=== PATIENT | male | born 1960 | race Caucasian/White ===

== ENCOUNTER → 2016-03-30 | Outpatient (CLI) | payer OTHER ==
[~2016-03-30] MED LIST: ASPI81TA28 PO; CYAN100T PO; HYDR-5688 PO; LANS15CA6 PO; MULT-506 PO; NAPR1TAB9 PO
--- NOTE | 2016-03-30 11:00 | DIAGNOSTIC IMAGING REPORT ---
[facility] ultrasound GALLBLADDER-ABD LIMITED CLINICAL HISTORY: Nausea bloating TECHNIQUE: Ultrasound COMPARISON STUDY: None FINDINGS: Fatty infiltration of liver. 2. Small gallbladder polyps measuring 5 mm. No shadowing gallstones. Common mild that of 5 mm. Right kidney is negative for hydronephrosis. Instill note is made of patient directed nodule of the right anterior abdominal wall. This is suggestive of lipoma measuring 6 x 10 x 2.5 cm. IMPRESSION: 1. Fatty infiltration of liver. 2. Small, or polyps. 3. Normal caliber bile ducts. 4. Anterior abdominal wall lipoma corresponding to the palpable nodule per patient Electronically signed by: Yifan Dempsey M.D. 03/30/2016 10:58 AM
== END | disposition home or self-care (01) ==
LOC: C.ULTR 09:20
PROVIDERS: ATTEND Surgery
DX: R11.0 Nausea (principal); R14.0 Abdominal distension (gaseous); K76.0 Fatty (change of) liver, not elsewhere classified

== ENCOUNTER 2016-05-03 06:12 | Observation (INO) | payer OTHER ==
[2016-04-24 09:25] VITALS: BMI 31.0
[~2016-05-03] VITALS: Ht 180.3 cm; Wt 102.3 kg
[2016-05-03] VITALS (11 sets, daily range): BP systolic 109–158; BP diastolic 60–84; PULSE 68–88; TEMP 36.2–37.4; O2SAT 91–95; Ht 180.3 cm; Wt 102.3 kg
[~2016-05-03 06:12] MED LIST changes: +CLINDAMYCIN IV 900 MG in DEXTROSE 5% ADD-VANTAGE 100ML 100 ML IV SCH; -CYAN100T PO; -HYDR-5688 PO; +LACTATED RINGER'S 1000ML 1,000 ML IV SCH; -NAPR1TAB9 PO
--- NOTE | 2016-05-03 07:04 | History & Physical Bridge Note ---
H&P Re-Evaluation Bridge Note: I have examined the patient, reviewed the History & Physical and in the interval since the performance of the History & Physical I have noted the following changes of clinical significance: No changes noted
[2016-05-03] MEDS ORDERED: LACTATED RINGER'S 1000ML 1,000 ML IV PRN (07:14)
[2016-05-03] MEDS ORDERED: KETOROLAC TROMETHAMINE 30 MG/ML VIAL IV. PRN (07:15)
[2016-05-03] MEDS ORDERED: ONDANSETRON INJ 2 MG/ML 2 ML VIAL IV PRN ×2 (07:15→09:00)
[2016-05-03] MEDS ORDERED: ONDANSETRON INJ 2 MG/ML 2 ML VIAL ONE (07:21)
[2016-05-03] MEDS ORDERED: ROCURONIUM BROMIDE 10 MG/ML 5 ML VIAL ONE (07:21)
[2016-05-03] MEDS ORDERED: DEXAMETHASONE SOD INJ 4 MG/ML VIAL ONE (07:21)
[2016-05-03] MEDS ORDERED: LIDOCAINE HCL 2% 2 ML VIAL (20MG/ML) ONE (07:21)
[2016-05-03] MEDS ORDERED: PROPOFOL IV EMULSION 10 MG/ML 20 ML VIAL IV ONE (07:21)
[2016-05-03] MEDS ORDERED: MIDAZOLAM HCL 1 MG/ML 2ML VIAL ONE (07:22)
[2016-05-03] MEDS ORDERED: FENTANYL CITRATE INJ 50 MCG/1 ML 2 ML VIAL ONE (07:22)
[2016-05-03] MEDS ORDERED: BUPIVACAINE 0.5 % 5 MG/1 ML MPF 30ML VIAL ONE (07:50)
[2016-05-03] MEDS ORDERED: LABETALOL HCL IV 5 MG/ML 20ML ONE (08:30)
[2016-05-03] MEDS ORDERED: NEOSTIGMINE METHYLSULFATE 5 MG/5 ML SYR ONE (08:40)
[2016-05-03] MEDS ORDERED: GLYCOPYRROLATE INJ 0.2 MG/ML VIAL ONE ×2 (08:40→09:05)
--- NOTE | 2016-05-03 08:51 | [facility] Operative Report ---
Operative Report Operative Date May 03, 2016. Pre-Operative Diagnosis Biliary colic Post-Operative Diagnosis chronic cholecystitis, adhesions Procedure(s) Performed lap leslie, lysis of adhesions Surgeon Dr Mccollum Dry Starch Supervisor Surgeon(s) Malick Wylie PA-C Estimated Blood Loss 20ML Findings dense adhesions- omentum to gb, + gs Specimens A: Gallbladder Anesthesia gen Complication(s) None Disposition Recovery Room / PACU I attest to the content of the Intraoperative Record and any orders documented therein. Any exceptions are noted below.
[2016-05-03] MEDS ORDERED: PROMETHAZINE HCL INJ 25 MG in SODIUM CHLORIDE 0.9% 50ML 50 ML IV PRN (09:00)
[2016-05-03] MEDS ORDERED: MoRPHine SULFATE 2 MG/ML CARP IV PRN (09:00)
[2016-05-03] MEDS ORDERED: HYDROCODONE/ACETAMOPHEN 5/325MG TAB PO PRN ×2 (09:00)
[2016-05-03] MEDS ORDERED: MoRPHine SULFATE 4 MG/ML 1 ML CARP\\VIAL IV PRN (09:00)
--- NOTE | 2016-05-03 09:07 | OPERATIVE REPORT ---
DATE OF OPERATION: 05/03/2016 PREOPERATIVE DIAGNOSIS: Biliary colic. POSTOPERATIVE DIAGNOSIS: Same with chronic cholecystitis and adhesions. NAME OF OPERATION: Laparoscopic cholecystectomy with lysis of adhesions. STAFF SURGEON: Dr. Mccollum. CARROT TIER: Malick Wylie PA-C. ANESTHESIA: General. OPERATION AND FINDINGS: PROCEDURE: The patient was brought in the operating room and placed on the operating table in supine position. His abdomen was prepped and draped in usual fashion. Pneumatic stockings and orogastric tube were placed. Incision was made just above the umbilicus using 0.5% plain Marcaine to anesthetize all incisions. Dissection was carried down to the fascia, placing a Veress needle producing pneumoperitoneum. An 11 mm port was placed at this level and then under visualization three 5 mm ports were placed, 1 cephalad and 2 laterally. The omentum was up over the liver. It was brought down. The gallbladder was retracted. There were significant and he has end of the omentum to the gallbladder. These were taken down and the gallbladder aspirated of bile. Dissection carried out at the moy hepatis through some dense scar tissue. This was all consistent with chronic cholecystitis. The cystic duct and cystic artery were identified. These were clipped and transected and the gallbladder dissected away from the liver bed in the usual fashion and placed into an Endobag. Because of the adhesions and retraction, there was a small 5 mm liver laceration x2 which were cauterized and easily maintained with hemostasis. After appropriate irrigation and hemostasis, the gallbladder was placed in the Endobag and removed through the umbilical site. I did have to increase the size of the fascial defect slightly to remove the gallbladder, it did have stones within the gallbladder. At this point, all ports were removed. The fascia at the umbilicus closed using interrupted 0 Vicryl suture. Subcutaneous tissue reapproximated using 2-0 plain catgut suture then the skin reapproximated at the umbilicus using 5-0 Prolene suture. The other sites using subcuticular 4-0 Monocryl and Dermabond. The patient was transferred to recovery room in stable condition. I attest to the content of the Intraoperative Record and any orders documented therein. Any exceptio ns are noted below.
[2016-05-03] MEDS: FENTANYL CITRATE INJ 50 MCG/1 ML 2 ML VIAL IV PRN ×2 (09:23→09:28)
[2016-05-03] MEDS ORDERED: PROMETHAZINE HCL INJ 12.5 MG in SODIUM CHLORIDE 0.9% 50ML 50 ML IV PRN (10:00)
[2016-05-03] MEDS ORDERED: IV FLUIDS COMPLETED PRN (10:00)
--- NOTE | 2016-05-03 10:03 | Anesthesiology Progress Note ---
Anesthesia Post Op Note Date & Time May 03, 2016 at 10:03 Vital Signs Pain Intensity: 2 Vital Signs Past 12 Hours Date Time Temp Pulse Resp B/P Pulse Ox O2 Delivery O2 Flow Rate FiO2 05/03/16 09:48 134/85 05/03/16 09:45 133/89 05/03/16 09:44 67 15 96 05/03/16 09:44 67 15 05/03/16 09:43 138/131 05/03/16 09:41 36.4 67 17 133/89 97 Nasal Cannula 2 05/03/16 09:39 68 23 05/03/16 09:39 66 23 97 05/03/16 09:38 148/90 05/03/16 09:34 64 16 98 05/03/16 09:34 65 16 05/03/16 09:33 140/90 05/03/16 09:29 63 15 05/03/16 09:29 64 15 97 05/03/16 09:28 142/89 05/03/16 09:24 61 7 97 05/03/16 09:24 61 7 05/03/16 09:23 146/102 05/03/16 09:20 62 15 97 05/03/16 09:20 62 15 05/03/16 09:18 146/98 05/03/16 09:15 64 10 97 05/03/16 09:15 64 10 05/03/16 09:13 142/90 05/03/16 09:10 64 18 124/89 96 05/03/16 09:10 64 18 05/03/16 09:08 167/98 05/03/16 09:05 64 14 05/03/16 09:05 36.5 64 16 161/92 98 Mask 10 05/03/16 09:05 64 14 99 05/03/16 06:37 36.9 68 18 155/84 95 Room Air Notes Mental Status: alert / awake / arousable, participated in evaluation Pt Amnestic to Procedure: Yes Nausea / Vomiting: adequately controlled Pain: adequately controlled Airway Patency, RR, SpO2: stable & adequate BP & HR: stable & adequate Hydration State: stable & adequate Anesthetic Complications: no major complications apparent Pt doing well.
[2016-05-03] MEDS ORDERED: LACTATED RINGER'S 1000ML 1,000 ML IV SCH (11:04)
[2016-05-03] MEDS: PANTOprazole SOD 40 MG TAB PO SCH (12:15)
[2016-05-03] MEDS ORDERED: CLINDAMYCIN 600 MG/54 ML D5W IV SCH (16:00)
[2016-05-03] MEDS: CLINDAMYCIN IV 600 MG in DEXTROSE 5% ADD-VANTAGE 50ML 50 ML IV SCH (16:01)
[2016-05-03] MEDS ORDERED: NURSING VERBAL MED ORDER ONE (21:45)
[2016-05-03] MEDS ORDERED: ACETAMINOPHEN 325 MG TAB PO PRN (22:00)
[2016-05-04] MEDS: CLINDAMYCIN IV 600 MG in DEXTROSE 5% ADD-VANTAGE 50ML 50 ML IV SCH (00:22)
[2016-05-04 03:29] VITALS: BP 125/70; PULSE 82; TEMP 36.7; O2SAT 96
[2016-05-04 06:00] LABS: HEMATOCRIT 37.9 % (42-52); MEAN CELL VOLUME 86.3 fL (80-100); MEAN CORPUSCULAR HEMOGLOBIN 28.9 pg (25-34); MEAN CORPUSCULAR HGB CONC 33.5 g/dl (32-36); MEAN PLATELET VOLUME 10.6 fL (7.4-10.4); PLATELET COUNT 275 K/uL (130-400); RED BLOOD COUNT 4.39 M/uL (4.7-6.1); WHITE BLOOD COUNT 24.74 K/uL (4.8-10.8)
[2016-05-04 06:24] LABS: ALT/SGPT 65 U/L (12-78); AST/SGOT 32 U/L (15-37); BLOOD UREA NITROGEN 17 mg/dl (7-18); BUN/CREATININE RATIO 18.8 (10-20); CARBON DIOXIDE 25 mmol/L (21-32); CHLORIDE 105 mmol/L (98-107); CREATININE 0.92 mg/dl (0.60-1.40); GLUCOSE 101 mg/dl (70-99); POTASSIUM 4.1 mmol/L (3.5-5.1); SODIUM 139 mmol/L (136-145)
[2016-05-04 06:26] LABS: ALB/GLOB RATIO 0.7 (0.9-2); ALKALINE PHOSPHATASE 64 U/L (45-117)
--- NOTE | 2016-05-04 07:00 | Discharge Instructions ---
Discharge Instructions Admission Reason for Admission: Abdominal Bloating, Gallbladder Polyp Discharge Discharge Diagnosis / Problem: chronic cholecystitis Discharge Goals Goal(s): Decrease discomfort, Improve function, Improve disease control Activity Recommendations Activity Limitations: as noted below Lifting Limitations: no more than 25 pounds Exercise/Sports Limitations: until after follow-up appointment May Resume Sexual Activity: when tolerated Shower/Bathe: no limitations (may shower, no bath for 1 week) Driving or Machine Use: resume 3 days after discharge SPECIAL CARE INSTRUCTIONS: * Cover incisions and change daily for comfort/drainage. * may leave uncovered with dermabond * May use ibuprofen for pain as tolerated. * Expect some swelling and bruising. Call your doctor if: * Temperature above 101 degrees * Pain not relieved by pain medicine ordered * There is increased drainage or redness from any incision * You have any unanswered questions or concerns [phone]. FOLLOW UP VISIT: If not already scheduled, please call the office for a follow-up visit. for next week- some sutures OFFICE PHONE NUMBER: Dr. Mccollum Office . Current Hospital Diet Patient's current hospital diet: Regular Diet Discharge Diet Recommended Diet: Regular Diet Procedures Procedures Performed: Laparoscopic Cholecystectomy Pending Studies Studies pending at discharge: no Medical Emergencies . Who to Call and When: Medical Emergencies: If at any time you feel your situation is an emergency, please call 911 immediately. . Non-Emergent Contact Non-Emergency issues call your: Surgeon . "Provider Documentation" section prepared by Zeus Mccollum. VTE Core Measure Inpt VTE Proph given/why not?: SCD's
[2016-05-04] MEDS ORDERED: HYDR-5688 PO (07:01)
[2016-05-04 07:15] VITALS: BP 125/70; PULSE 82; TEMP 36.7; O2SAT 96
--- NOTE | 2016-05-04 07:19 | DISCHARGE SUMMARY ---
PRINCIPAL DIAGNOSIS: Chronic cholecystitis. PROCEDURES: The patient underwent laparoscopic cholecystectomy. HISTORY OF PRESENT ILLNESS: The patient is a 55-year-old male who has had intermittent upper abdominal pain with ultrasound showing gallbladder polyps, but symptoms consistent with biliary colic. The patient was brought into the hospital on 05/03/2016 where he underwent laparoscopic cholecystectomy showing significant adhesions to the gallbladder and evidence of stones after the gallbladder was removed. He did well postoperatively and overnight and is felt stable for discharge home today to be followed in the surgical clinic next week.
[2016-05-04 07:25] VITALS: BP 168/93; PULSE 84; TEMP 36.5; O2SAT 95
[2016-05-04] MEDS: PANTOprazole SOD 40 MG TAB PO SCH (09:02)
== END 2016-05-04 10:21 | disposition home or self-care (01) ==
LOC: ENRESERVDT → ENRESERVTM → C.ACU 06:12 → C.MSW 08:55
PROVIDERS: ADMIT Surgery; ATTEND Surgery
DX: K80.10 Calculus of gallbladder with chronic cholecystitis without obstruction (principal); R14.0 Abdominal distension (gaseous); Z79.82 Long term (current) use of aspirin